=== PATIENT | male | born 1995 | race Caucasian/White ===

== ENCOUNTER 2020-10-02 21:14 | Emergency (ER) | payer OTHER ==
[2020-10-02 21:24] VITALS: BP 155/75
[2020-10-02] MEDS ORDERED: BUFFERED LIDOCAINE 10 ML SYRINGE SUBQ STA (21:37)
[2020-10-02] MEDS ORDERED: cephALEXin 250 MG CAPSULE PO STA (22:16)
[2020-10-02] MEDS ORDERED: CHLORHEXIDINE GLUCONATE 15 ML UDC PO STA (22:16)
[2020-10-02] MEDS ORDERED: BACITRACIN ZINC OINT 1 PACKET TOP STA (22:16)
--- NOTE | 2020-10-02 22:19 | ED Physician Documentation ---
History of Present Illness - Stated complaint Stated Complaint: MOUTH INJ - Chief complaint Chief Complaint: Laceration - History obtained from History obtained from: Patient - Additonal information Additional information: 24-year-old male presents the emergency department for evaluation of a lower lip laceration sustained when he was practicing [employer] with a friend. He was accidentally elbowed in the mouth while not wearing his guard. He does have a through and through laceration of the lower lip that was sustained when it came in contact with his teeth. He denies any loose teeth or dentition. No headache. Tetanus is up-to-date within the last 3 years. Review of Systems Constitutional: reports: Reviewed and negative Eyes: reports: Reviewed and negative Ears: reports: Reviewed and negative Nose: reports: Reviewed and negative Throat: reports: Oral lesions / sores (laceration lower lip). denies: Dental pain / toothache Cardiac: reports: Reviewed and negative Respiratory: reports: Reviewed and negative GI: reports: Reviewed and negative : reports: Reviewed and negative Skin: reports: Laceration (s) (lower lip) PD PAST MEDICAL HISTORY - Past Medical History Past Medical History: No - Past Surgical History Past Surgical History: No - Present Medications Home Medications: Ambulatory Orders Medication Instructions Recorded Confirmed Chlorhexidine Gluconate [Peridex] 15 ml MM TID #118 ml 10/02/20 cephALEXin [Keflex] 500 mg PO Q6H #20 10/02/20 - Allergies Allergies/Adverse Reactions: Allergies Allergy/AdvReac Type Severity Reaction Status Date / Time No Known Drug Allergies Allergy Verified 10/02/20 21:21 - Social History Does the pt smoke?: No Smoking Status: Never smoker PD ED PE EXPANDED - General General: Alert, No acute distress - HEENT HEENT: Dentition normal (No laxity of the teeth or dental pain elicited. No trismus of the mouth. Full opening.), Buccal laceration (Jagged irregular through and through laceration of the lower lip. Measures approximately 1.5 cm.). No: Dental trauma - Cardiac Cardiac: Regular Rate, Regular Rhythm, Pedal strong equal, Cap refill < 2 sec - Neuro Neuro: Alert and Oriented X 3 - GCS Eye Opening: Spontaneous Motor: Obeys Commands Verbal: Oriented Total: 15 Results - Vitals Vitals: Vital Signs - 24 hr 10/02/20 21:20 Temperature 37 C Heart Rate 66 Respiratory 16 Rate Blood Pressure 155/75 H O2 Saturation 99 Oxygen O2 Source Room air Procedures - Laceration (location) lower lip Length in cm: 1.5 Wound type: Irregular, Flap, Into subcut fat, Into muscle, Contaminated Anesthesia: Lidocaine 1% Wound preparation: Chlorhexadine, Irrigated copiously NS Deep layer closure: Vicryl, # sutures - enter number (2), Other (Internal lip laceration approximated with two 5.0 Vicryl sutures.) Skin layer closure: Nylon, Interrupted, Size #-0 - enter number (5), Sutures - enter # (4) Other: Patient tolerated well, No complications PD MEDICAL DECISION MAKING - ED course Complexity details: reviewed results, re-evaluated patient, d/w patient ED course: 24-year-old male presents to emergency department with a through and through laceration of the lower lip 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 The external laceration was closed using 4 five-point 0 nylon sutures. 1 internal mucosal suture was placed to approximate the gap and two absorbable Vicryl sutures were placed on the inside of the lip to help approximate that laceration. The internal laceration was not fully closed in order to allow drainage if necessary. This gentleman will be advised to do chlorhexidine mouth rinses 2-3 times a day. Short course of Keflex will be prescribed given contaminated wound and oral surface. Tetanus is up-to-date. Routine care and emergent return precautions were discussed. Departure - Departure Disposition: 01 Home, Self Care Clinical Impression: Laceration of lip, complicated Qualifiers: Encounter type: initial encounter Qualified Code(s): S01.511A - Laceration without foreign body of lip, initial encounter Condition: Stable Record reviewed to determine appropriate education?: Yes Prescriptions: cephALEXin [Keflex] 500 mg PO Q6H #20 Chlorhexidine Gluconate [Peridex] 15 ml MM TID #118 ml Comments: The 4 sutures placed on the outside of your lip should be removed in 5 days. There are internal absorbable sutures on the inside of your lip that will simply fall away on their own. I would like you to rinse and spit with the chlorhexidine mouthwash 2-3 times a day. I have also prescribed a short course of antibiotics. If you find that you are having increased pain, any redness milky drainage fevers or concerns of infection please return immediately to the emergency department. you may gently wash your laceration with warm soap and water, pat dry and then apply any antibiotic ointment. You may shower normally Always wear a mouthguard when practicing martial arts.
== END 2020-10-02 22:30 | disposition home or self-care (01) ==
LOC: ED 21:14
DX: S01.511A Laceration without foreign body of lip, initial encounter (principal); W50.0XXA Accidental hit or strike by another person, initial encounter; Y93.59 Activity, other involving other sports and athletics played individually
CPT/HCPCS: 12011; 99283; A9270

== ENCOUNTER 2020-10-07 10:29 | Emergency (ER) | payer OTHER ==
[2020-10-07 10:38] VITALS: BP 124/71
--- NOTE | 2020-10-07 10:58 | ED Physician Documentation ---
History of Present Illness - Stated complaint Stated Complaint: STITCH REMOVAL - Chief complaint Chief Complaint: General - History obtained from History obtained from: Patient - Additonal information Additional information: Patient comes emergency department for chief complaint of suture removal. Patient had sutures placed 5 days ago on his lower lip. He states that he had a through and through laceration and that the absorbable sutures on his lip mucosa just fell out yesterday. He has had no problems with the wound. No dehiscence or drainage. He is here to get his external stitches removed. Review of Systems Ten Systems: 10 systems reviewed and negative Constitutional: reports: Reviewed and negative Eyes: reports: Reviewed and negative Ears: reports: Reviewed and negative Nose: reports: Reviewed and negative Throat: reports: Reviewed and negative Cardiac: reports: Reviewed and negative Respiratory: reports: Reviewed and negative GI: reports: Reviewed and negative : reports: Reviewed and negative Skin: reports: Reviewed and negative Musculoskeletal: reports: Reviewed and negative Neurologic: reports: Reviewed and negative Psychiatric: reports: Reviewed and negative Endocrine: reports: Reviewed and negative Immunocompromised: reports: Reviewed and negative PD PAST MEDICAL HISTORY - Past Medical History Past Medical History: No Cardiovascular: None Respiratory: None Neuro: None Endocrine/Autoimmune: None GI: None : None HEENT: None Psych: None Musculoskeletal: None Derm: None - Past Surgical History Past Surgical History: No - Present Medications Home Medications: Ambulatory Orders Medication Instructions Recorded Confirmed Chlorhexidine Gluconate [Peridex] 15 ml MM TID #118 ml 10/02/20 10/07/20 cephALEXin [Keflex] 500 mg PO Q6H #20 10/02/20 10/07/20 - Allergies Allergies/Adverse Reactions: Allergies Allergy/AdvReac Type Severity Reaction Status Date / Time No Known Drug Allergies Allergy Verified 10/07/20 10:38 - Social History Does the pt smoke?: No Smoking Status: Never smoker Does the pt drink ETOH?: Yes Does the pt have substance abuse?: No - Immunizations Immunizations are current?: Yes - POLST Patient has POLST: No PD ED PE NORMAL - Vitals Vital signs reviewed: Yes - General General: Alert and oriented X 3, No acute distress - HEENT HEENT: PERRL, EOMI, Moist mucous membranes, Other (Well-healed laceration in the midline of lower lip, inferior to vermilion border. No erythema, induration, edema, or wound dehiscence. Wound is clean and dry. 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 We have discussed wound care at home and the usual indications for return Departure - Departure Disposition: 01 Home, Self Care Clinical Impression: Encounter for removal of sutures Condition: Stable Instructions: ED Wound Check Sutr Remove No Infec
== END 2020-10-07 11:05 | disposition home or self-care (01) ==
LOC: ED 10:29
DX: S01.511D Laceration without foreign body of lip, subsequent encounter (principal); X58.XXXD Exposure to other specified factors, subsequent encounter
CPT/HCPCS: 99281